=== PATIENT | female | born 1985 | race African-American/Black ===

== ENCOUNTER 2018-06-11 18:49 | Emergency (ER) | payer MEDICAID ==
[~2018-06-11] VITALS: Ht 162.6 cm; Wt 72.0 kg
[~2018-06-11 18:49] MED LIST: ALBU2.5V13 NEB
[2018-06-11 20:47] LABS: BASOPHILS % 0.3 % (0.0-2.0); EOSINOPHILS % 0.1 % (0.0-5.0); HEMATOCRIT. 41.3 % (36.0-48.0); HEMOGLOBIN. 13.9 g/dL (12.0-16.0); LYMPHOCYTES % 11.1 % (20.0-50.0); MEAN CORPUSCULAR VOLUME 94.8 fL (81.0-99.0); MEAN PLATELET VOLUME 8.4 fl (7.4-10.4); MONOCYTES % 7.8 % (2.0-8.0); NEUTROPHILS % 80.7 % (40.0-76.0); PLATELET 349 x1000/uL (130-400); RED BLOOD CELL COUNT 4.36 mill/uL (4.2-5.4); RED CELL DISTRIBUTION WIDTH 15.3 % (11.6-14.6)
[2018-06-11 20:50] LABS: CHLORIDE 101 mEq/L (98-107)
[2018-06-11 20:51] LABS: CLARITY URINE CLOUDY (CLEAR); COLOR URINE DARK YELLOW (YELLOW); KETONES URINE 3+ (NEGATIVE); LEUKOCYTE ESTERASE URINE 1+ (NEGATIVE); NITRITE URINE NEGATIVE (NEGATIVE); OCCULT BLOOD URINE 1+ (NEGATIVE); PROTEIN URINE 2+ (NEGATIVE); SPECIFIC GRAVITY URINE 1.026 (1.005-1.030)
[2018-06-11 20:56] LABS: ETHANOL BLOOD < 10 mg/dL
[2018-06-11 21:03] LABS: *BARBITURATES SCREEN URINE NEGATIVE (NEGATIVE); *BENZODIAZEPINES SCREEN URINE NEGATIVE (NEGATIVE); METHADONE URINE SCREEN NEGATIVE (NEGATIVE); OPIATES URINE SCREEN NEGATIVE (NEGATIVE)
[2018-06-11 21:04] LABS: PHENCYCLIDINE URINE SCREEN NEGATIVE (NEGATIVE)
[2018-06-11 21:16] LABS: *AMPHETAMINES SCREEN URINE PRESUMTIVE POSITIVE (NEGATIVE); *COCAINE SCREEN URINE PRESUMTIVE POSITIVE (NEGATIVE); CANNABINOID URINE SCREEN PRESUMTIVE POSITIVE (NEGATIVE)
[2018-06-11] MEDS ORDERED: METRONIDAZOLE 500MG TABLET PO NR (21:30)
[2018-06-12] MEDS ORDERED: OLANZAPINE 10MG TABLET PO ONE (04:45)
[2018-06-13 19:15] VITALS: BP 103/63
== END 2018-06-13 20:05 | disposition home or self-care (01) ==
LOC: ER 19:14
DX: F60.0 Paranoid personality disorder (principal); R45.851 Suicidal ideations; J45.909 Unspecified asthma, uncomplicated; R94.31 Abnormal electrocardiogram [ECG] [EKG]; Z88.0 Allergy status to penicillin; Z88.8 Allergy status to other drugs, medicaments and biological substances
CPT/HCPCS: 36415; 80053; 80305; 80307; 80329; 81003; 81025; 85025; 93005; 99285; G0482

== ENCOUNTER 2019-07-29 15:07 | Emergency (ER) | payer MEDICAID ==
[~2019-07-29] VITALS: Ht 157.5 cm; Wt 69.0 kg
[2019-07-29] MEDS ORDERED: ACETAMINOPHEN 325MG TABLET PO PRN (16:00)
[2019-07-29 16:27] LABS: BASOPHILS % 0.2 % (0.0-2.0); EOSINOPHILS % 0.2 % (0.0-5.0); HEMATOCRIT. 39.5 % (36.0-48.0); HEMOGLOBIN. 13.7 g/dL (12.0-16.0); LYMPHOCYTES % 15.5 % (20.0-50.0); MEAN CORPUSCULAR VOLUME 97.8 fL (81.0-99.0); MEAN PLATELET VOLUME 8.4 fl (7.4-10.4); MONOCYTES % 6.3 % (2.0-8.0); NEUTROPHILS % 77.8 % (40.0-76.0); PLATELET 265 x1000/uL (130-400); RED BLOOD CELL COUNT 4.04 mill/uL (4.2-5.4); RED CELL DISTRIBUTION WIDTH 12.9 % (11.6-14.6)
[2019-07-29 16:32] LABS: CHLORIDE 106 mEq/L (98-107)
[2019-07-29 16:36] LABS: D-DIMER 0.24 mg/L FEU (<0.50); INR 1.1; PARTIAL THROMBOPLASTIN TIME 29.9 sec (23.4-31.0); PROTHROMBIN TIME 10.9 sec (9.6-11.0)
[2019-07-29 16:42] LABS: B-HCG QUANTITATIVE < 1 mIU/mL (<3)
[2019-07-29] MEDS ORDERED: SODIUM CHLORIDE 0.9% 1,000 ML IV ONE (18:10)
[2019-07-29 18:28] LABS: CLARITY URINE CLEAR (CLEAR); COLOR URINE YELLOW (YELLOW); KETONES URINE 1+ (NEGATIVE); LEUKOCYTE ESTERASE URINE NEGATIVE (NEGATIVE); NITRITE URINE NEGATIVE (NEGATIVE); OCCULT BLOOD URINE 3+ (NEGATIVE); PH URINE 8.5 (4.5-8.0); PROTEIN URINE NEGATIVE (NEGATIVE); SPECIFIC GRAVITY URINE 1.018 (1.005-1.030); UROBILINOGEN URINE 0.2 E.U./dL (0.2-1.0)
[2019-07-29 20:00] VITALS: BP 120/67
== END 2019-07-29 20:02 | disposition home or self-care (01) ==
LOC: ER 15:07
DX: R10.9 Unspecified abdominal pain (principal); R07.9 Chest pain, unspecified; N83.209 Unspecified ovarian cyst, unspecified side; N93.9 Abnormal uterine and vaginal bleeding, unspecified; E11.9 Type 2 diabetes mellitus without complications; Z88.0 Allergy status to penicillin; Z86.718 Personal history of other venous thrombosis and embolism
CPT/HCPCS: 36415; 76830; 76856; 80053; 81003; 84702; 85025; 85379; 85610; 85730; 86850; 86900; 86901; 93005; 93970; 96360; 99284; J7030; Z7610

== ENCOUNTER 2019-09-14 22:12 | Emergency (ER) | payer MEDICAID ==
[~2019-09-14] VITALS: Ht 157.5 cm; Wt 69.0 kg
[2019-09-15] MEDS ORDERED: KETOROLAC 30MG/ML VIAL IV ONE (02:15)
[2019-09-15] MEDS ORDERED: HYDROCODONE/ACETAMINOPHEN 5/325MG TABLET PO ONE (04:15)
[2019-09-15 05:17] VITALS: BP 122/56
== END 2019-09-15 05:24 | disposition home or self-care (01) ==
LOC: ER 22:12
DX: R60.0 Localized edema (principal); E11.9 Type 2 diabetes mellitus without complications; R51 Headache; F12.10 Cannabis abuse, uncomplicated; Z88.0 Allergy status to penicillin; Z86.718 Personal history of other venous thrombosis and embolism; V98.8XXA Other specified transport accidents, initial encounter; Y93.89 Activity, other specified; Y92.89 Other specified places as the place of occurrence of the external cause; Y99.8 Other external cause status
CPT/HCPCS: 70486; 81025; 96374; 99284; J1885

== ENCOUNTER 2022-11-18 14:19 | Emergency (ER) | payer MEDICAID ==
[~2022-11-18] VITALS: Ht 165.1 cm; Wt 64.0 kg
[2022-11-18 14:21] VITALS: BP 146/90
== END 2022-11-18 20:19 | disposition left against medical advice (07) ==
LOC: ER 14:19
DX: Z53.21 Procedure and treatment not carried out due to patient leaving prior to being seen by health care provider (principal)

== ENCOUNTER 2023-05-07 23:20 | Emergency (ER) | payer MEDICAID, OTHER ==
[~2023-05-07] VITALS: Ht 162.6 cm; Wt 73.0 kg
[2023-05-07 23:28] VITALS: BP 115/82; O2SAT 100
[2023-05-08] MEDS ORDERED: DOXY100C5 MT (00:29)
[2023-05-08 00:42] VITALS: PULSE 90; RESP 17; TEMP 98.8
[2023-05-08] MEDS: CEFTRIAXONE SODIUM 500 MG/VIAL IM ONE (00:42)
[2023-05-09 13:11] LABS: HIV SCREEN 4G Non Reactive (Non Reactive)
== END 2023-05-08 00:45 | disposition home or self-care (01) ==
LOC: ER 23:20
DX: Z11.3 Encounter for screening for infections with a predominantly sexual mode of transmission (principal); J45.909 Unspecified asthma, uncomplicated; Z88.0 Allergy status to penicillin
CPT/HCPCS: 81025; 99283; 86592; 87389; 96372; J0696; Z7610

== ENCOUNTER 2024-07-18 00:53 | Emergency (ER) | payer MEDICAID, OTHER ==
[~2024-07-18] VITALS: Ht 167.6 cm; Wt 80.0 kg
[~2024-07-18 00:53] MED LIST changes: +DOXY100C5 MT
[2024-07-18 00:55] VITALS: O2SAT 100
[2024-07-18] MEDS: LEVETIRACETAM 500MG PREMIX 100 ML IV ONE (02:29)
[2024-07-18] MEDS ORDERED: KEPPSOL MT (06:16)
[2024-07-18 06:20] VITALS: BP 108/66; PULSE 97; RESP 18; TEMP 36.66960; O2SAT 98
== END 2024-07-18 07:08 | disposition home or self-care (01) ==
LOC: ER 00:53
DX: G40.909 Epilepsy, unspecified, not intractable, without status epilepticus (principal); E11.9 Type 2 diabetes mellitus without complications; F12.90 Cannabis use, unspecified, uncomplicated; I10 Essential (primary) hypertension; Z85.3 Personal history of malignant neoplasm of breast; Z88.0 Allergy status to penicillin; Z98.890 Other specified postprocedural states
CPT/HCPCS: 96365; 99284; J1953; Z7610 ×4

== ENCOUNTER 2025-02-09 00:35 | Emergency (ER) | payer MEDICAID ==
[~2025-02-09] VITALS: Ht 167.6 cm; Wt 65.0 kg
[~2025-02-09 00:35] MED LIST changes: +KEPPSOL MT
[2025-02-09 00:38] VITALS: O2SAT 98
[2025-02-09] MEDS ORDERED: CEFTRIAXONE SODIUM 500MG VIAL IM ONE (01:00)
[2025-02-09] MEDS: CEFTRIAXONE SODIUM 500MG VIAL IM NR (02:30)
[2025-02-09] MEDS: ACETAMINOPHEN 500MG TABLET PO ONE (04:00)
[2025-02-09 04:26] LABS: CLARITY URINE CLEAR (CLEAR); COLOR URINE YELLOW (YELLOW); GLUCOSE URINE NEGATIVE (NEGATIVE); KETONES URINE NEGATIVE (NEGATIVE); LEUKOCYTE ESTERASE URINE TRACE (NEGATIVE); NITRITE URINE NEGATIVE (NEGATIVE); OCCULT BLOOD URINE NEGATIVE (NEGATIVE); PH URINE 6.5 (4.5-8.0); PROTEIN URINE NEGATIVE (NEGATIVE); SPECIFIC GRAVITY URINE 1.009 (1.005-1.030)
[2025-02-09 04:31] LABS: RBC URINE 0-2 /hpf (0-2); SQUAMOUS EPITHELIAL CELL URINE RARE /lpf (RARE/1+); WBC URINE 0-2 /hpf (0-2)
[2025-02-09 04:32] LABS: BACTERIA URINE TRACE
[2025-02-09 05:07] VITALS: BP 155/92; PULSE 78; RESP 17; TEMP 36.9; O2SAT 98
[2025-02-09] MEDS ORDERED: DOXY100C5 MT (05:08)
[2025-02-11 04:10] LABS: CHLAMYDIA TRACHOMATIS NAA Negative (Negative); NEISSERIA GONORRHOEAE NAA Negative (Negative)
== END 2025-02-09 06:52 | disposition home or self-care (01) ==
LOC: ER 00:35
DX: T74.21XA Adult sexual abuse, confirmed, initial encounter (principal); E11.9 Type 2 diabetes mellitus without complications; I10 Essential (primary) hypertension; Z11.3 Encounter for screening for infections with a predominantly sexual mode of transmission; Z79.899 Other long term (current) drug therapy; Z88.0 Allergy status to penicillin; Z88.1 Allergy status to other antibiotic agents; Y92.89 Other specified places as the place of occurrence of the external cause
CPT/HCPCS: 87491; 87591; 81003; 86592; 87210; 36415; 96372; 99283; J0696; Z7610 ×2